=== PATIENT | female | born 1970 | race African-American/Black ===

== ENCOUNTER 2023-10-19 07:37 | Day surgery (SDC) | payer BC ==
[2023-10-16 13:46] VITALS: BMI 33.3
[2023-10-19] MEDS ORDERED: PROPOFOL 160 ML ONE (08:00)
[2023-10-19 08:50] VITALS: RESP 19; TEMP 97.7
[2023-10-19 08:52] VITALS: BP 108/62; PULSE 78
== END 2023-10-19 08:55 | disposition home or self-care (01) ==
LOC: FASU-ENDO 07:37
PROVIDERS: ATTEND Internal Medicine Gastroenterology
PROC: 0DBC8ZX Excision of Ileocecal Valve, Via Natural or Artificial Opening Endoscopic, Diagnostic (ICD-10-PCS; principal; 2023-10-19 08:11)
DX: Z12.11 Encounter for screening for malignant neoplasm of colon (principal); D12.0 Benign neoplasm of cecum
CPT/HCPCS: 81025; 88305-TC